=== PATIENT | male | born 1990 | race Two or more races ===

== ENCOUNTER 2020-11-27 01:43 | Emergency (ER) | payer MEDICAID, OTHER ==
[~2020-11-27] VITALS: Ht 170.2 cm; Wt 65.8 kg
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
[2020-11-27] MEDS ORDERED: TDAP [DIPH/PERTUSSIS/TET] 0.5 ML VIAL IM ONE ×2 (02:00→02:27)
--- NOTE | 2020-11-27 02:02 | NUR ---
RADILOGY AT BEDSIDE FOR XRAY
--- NOTE | 2020-11-27 02:06 | NUR ---
BROUGHT BY RADIOLOGY TO CT
[2020-11-27] MEDS ORDERED: LIDOCAINE 1% INJ 50 ML MDV IJ ONE (02:27)
[2020-11-27] MEDS ORDERED: HYDROCODONE/APAP 5/325MG TABLET PO ONE (02:30)
[2020-11-27] MEDS ORDERED: HYDROCODONE/APAP 5/325MG TABLET ONE (02:33)
--- NOTE | 2020-11-27 02:40 | NUR ---
PT REFUSING SUTURE REPAIR. MD AWARE
[2020-11-27 02:58] VITALS: BP 132/72
--- NOTE | 2020-11-27 02:58 | NUR ---
PT MEDICALLY CLEARED FOR BOOKING AND DISCHARGED IN CUSTODY WITH [employer]. PT AMBULATORY WITH STEADY GAIT. VITAL SIGNS STABLE. NO ACUTE DISTRESS NOTED AT THIS TIME.
== END 2020-11-27 02:59 ==
LOC: ER 01:45
DX: S31.114A Laceration without foreign body of abdominal wall, left lower quadrant without penetration into peritoneal cavity, initial encounter (principal); S09.8XXA Other specified injuries of head, initial encounter; M54.5 Low back pain; V49.49XA Driver injured in collision with other motor vehicles in traffic accident, initial encounter; Y93.89 Activity, other specified; Y92.488 Other paved roadways as the place of occurrence of the external cause; Y99.8 Other external cause status
CPT/HCPCS: 70450; 72100; 90471; 90715; 99284; A6403; J3490